=== PATIENT | male | born 1985 | race Caucasian/White ===

== ENCOUNTER 2017-02-15 22:50 | Emergency (ER) | payer SELFPAY ==
[~2017-02-15] VITALS: Ht 175.3 cm; Wt 106.8 kg
[~2017-02-15 22:50] MED LIST: MECL25TA2 PO; ONDA4TAB35 PO; RANI150T9 PO; SUCR1TAB56 PO
[2017-02-15 23:01] VITALS: Ht 175.3 cm; Wt 106.8 kg
== END 2017-02-16 02:30 | disposition left against medical advice (07) ==
LOC: E/R 22:50
DX: Z53.21 Procedure and treatment not carried out due to patient leaving prior to being seen by health care provider (principal)